=== PATIENT | female | born 1970 | race Caucasian/White ===

== ENCOUNTER 2019-01-30 20:23 | Emergency (ER) | payer BC ==
[~2019-01-30] VITALS: Ht 154.9 cm; Wt 43.5 kg
[2019-01-30 20:29] VITALS: Ht 154.9 cm; Wt 43.5 kg
[2019-01-31 01:20] VITALS: BP 125/76
== END 2019-01-31 01:20 | disposition home or self-care (01) ==
LOC: ED 20:23
DX: G44.209 Tension-type headache, unspecified, not intractable (principal); E11.9 Type 2 diabetes mellitus without complications
CPT/HCPCS: J1885